=== PATIENT | female | born 1970 | race Caucasian/White ===

== ENCOUNTER 2017-12-03 09:17 | Outpatient (CLI) | payer BC ==
--- NOTE | 2017-12-17 12:35 | MMO ---
BILATERAL SCREENING MAMMOGRAMS: Date: 12/03/2017 COMPARISON: Prior exam of 2014. This patient's mammogram was interpreted with the assistance of computer-aided detection. FINDINGS: Heterogeneously dense glandular pattern again noted. No evidence of mass or distortion. No suspicio us calcification. No evidence of interval change. Recommend one year follow-up. IMPRESSION: BI-RADS 1: Negative Routine annual screening mammography (for women over age 40) POS: [facility]
== END 2017-12-03 09:18 | disposition home or self-care (01) ==
LOC: SCSMAMMO 09:17
PROVIDERS: ATTEND Obstetrics & Gynecology
DX: Z12.31 Encounter for screening mammogram for malignant neoplasm of breast (principal)
CPT/HCPCS: 77067